=== PATIENT | female | born 1985 | race Caucasian/White ===

== ENCOUNTER 2023-03-15 19:00 | Outpatient (OUT) | payer OTHER, SELFPAY ==
[2023-03-20 11:13] LABS: Age Gdln ACOG Testing Note (.); HPV Aptima Negative (Negative); IGP, Aptima HPV, rfx 16/18,45 Note (.)
== END 2023-03-15 19:01 | disposition home or self-care (01) ==
PROVIDERS: Visit Provider Obstetrics & Gynecology
DX: Z12.4 Encounter for screening for malignant neoplasm of cervix (principal); Z11.51 Encounter for screening for human papillomavirus (HPV)
CPT/HCPCS: 87624; G0145

== ENCOUNTER 2024-04-09 18:36 | Outpatient (REF) | payer SELFPAY | END 2024-04-09 18:37 | disposition home or self-care (01) | LOC: LAB 18:36 | PROVIDERS: Visit Provider Obstetrics & Gynecology | DX: Z01.419 Encounter for gynecological examination (general) (routine) without abnormal findings (principal) | CPT/HCPCS: 87624; 88175 ==

== ENCOUNTER 2025-04-14 19:16 | Outpatient (REF) | payer BC, SELFPAY ==
--- OUTSIDE RECORDS SUMMARY | 2025-04-14 19:23 | XMS_ITS | CCD ---
Author Organization [facility] Care Team Providers Care Mortgage Processing Clerk Name Role Phone MELODIE WATERS Primary Care Unavailable GUMARO, DR MOSQUERA Admitting Unavailable GUMARO, DR MOSQUERA Attending Unavailable GUMARO, DR MOSQUERA Consulting Unavailable BHAVESH SIERRA Consulting Unavailable COLE, YAIMA HUGHES Consulting Unava dillon DE LA FUENTE, JENNIFER Nguyễn Consulting Unavailable GUMARO, DR MOSQUERA Attending Unavailable GUMARO, DR MOSQUERA Consulting Unavailable GUMARO, DR MOSQUERA Admitting Unavailable ZIEBER, DR EDDIE Mack Consulting Unavailable GUMARO, DR MOSQUERA Attending Unavailable GUMARO, DR MOSQUERA Consulting Unavailable GUMARO, DR MOSQUERA Admitting Unavailable LEANN, COLIN Attending Unavailable FRANSISCA, JOVANI APPIAH Consulting Unavailable LEANN, COLIN Admitting Unavailable MELODIE WATERS Primary Care Unavailable GUMARO, DR MOSQUERA Admitting Unavailable REQUEST, DR TUTTLE LISTED Primary Care Unavaila ble GUMARO, DR MOSQUERA Attending Unavailable GUMARO, DR MOSQUERA Admitting Unavailable GUMARO, DR MOSQUERA Attending Unavailable GUMARO, DR MOSQUERA Consulting Unavailable Melodie Waters Primary Care Physician Melodie Waters Attending Unavailable Melodie Waters Admitting Unavailable DEMETRI NAIK Attending Unavailable Melodie Waters Primary Care Unavailable Ese Acharya Jr Attending Unavailable Ese Acharya Jr Admitting Unavailable Melodie Waters DO Primary Care Provider Medications Current Medications Medication Drug Class(es) Dates Sig (Normalized) Sig (Original) acetaminophen 325 mg oral tablet (1 source) Start: 01-08-2021 Tylenol 325 mg Tab 650 mg = 2 tab(s), Oral, PRN Pain/Fever, Refills(s) 0 Start Date: 01/08/21 Status: Ordered aspirin 325 mg oral tablet (1 source) Platelet Aggregation Inhibitor, Nonsteroidal Anti-inflammatory Drug Start: 01-08-2021 aspirin 325 mg Tab 650 mg = 2 tab(s), Oral, PRN Pain/Fever, Refills(s) 0 Start Date: 01/08/21 Status: Ordered ibuprofen 200 mg oral tablet (1 source) Nonsteroidal Anti-inflammatory Drug Start: 01-08-2021 ibuprofen 200 mg Tab 400 mg = 2 tab(s), Oral, PRN Pain/Fever, Refills(s) 0 Start Date: 01/08/21 Status: Ordered losartan potassium 50 mg oral tablet (2 sources) Angiotensin 2 Receptor Tyrell Start: 03-17-2025 take 1 tablet by mouth once daily losartan (Cozaar) 50 MG tablet Take 50 mg by mouth Daily 03/17/2025 Active Multivitamins (1 source) Start: 06-02-2015 take 1 tablet by mouth once daily Multivitamins 1 tab(s), Oral, Daily, Refill(s) 0 Start Date: 06/02/15 Status: Ordered promethazine hydrochloride 25 mg oral tablet (1 source) Phenothiazine Start: 01-08-2021 take 1 tablet by mouth every eight hours as needed for nausea promethazine 25 mg Tab 25 mg = 1 tab(s), Oral, q8hr, PRN for nausea/vomiting/he adache, # 25 tab(s), Refills(s) 0, Pharmacy: [facility]/pharmacy #[id number], 168, cm, 01/08/21 16:44:00 EDT, Height/Length Dosing, 91, kg, 01/08/21 16:44:00 EDT, Weight Dosing Start Date: 01/08/21 Status: Ordered Problems Active Problems Problem Classification Problem Date Documented Date Episodic/Chronic Abdominal pain (5 sources) Pelvic and perineal pain; Translations: [PELVIC AND PERINEAL PAIN] Onset: 04-24-2022 Episodic Anxiety disorders (1 source) Mixed anxiety and depressive disorder 01-08-2021 Chronic Complications of surgical procedures or medical care (5 sources) Postprocedural hemorrhage of skin and subcutaneous tissue following other procedure; Translations: [POSTP H SKIN AND SC TISS FLW OTH PCR] Onset: 05-06-2022 Episodic Conditions associated with dizziness or vertigo (1 source) Dizziness and giddiness; Translations: [Dizziness and giddiness] Onset: 02-12-2025 Episodic Immunizations and screening for infectious disease (1 source) Encounter for screening for human papillomavirus (HPV); Translations: [ENC SCREENING HUMAN PAPILLOMAVIRUS] Onset: 03-10-2022 Episodic Inflammatory diseases of female pelvic organs (1 source) Chronic salpingitis; Translations: [CHRONIC SALPINGITIS] Onset: 05-13-2022 Chronic Menstrual disorders (1 source) Dysmenorrhea, unspecified; Translations: [DYSMENORRHEA UNSPECIFIED] Onset: 05-13-2022 Chronic Other aftercare (1 source) Encounter for change or removal of surgical wound dressing; Translations: [ENC CHG/REMOVAL SURG WOUND DRSG] Onset: 05-13-2022 Episodic Other connective tissue disease (1 source) Pain in left arm; Translations: [Pain in left arm] Onset: 02-12-2025 Episodic Other female genital disorders (1 source) Unspecified dyspareunia; Translations: [UNSPECIFIED DYSPAREUNIA] Onset: 05-13-2022 Chronic Other female genital disorders (1 source) Abnormal uterine and vaginal bleeding, unspecified; Translations: [ABNORMAL UTERINE VAGINAL BLEED UNS] Onset: 05-13-2022 Chronic Other nervous system disorders (1 source) Anesthesia of skin; Translations: [Anesthesia of skin] Onset: 02-12-2025 Episodic Other screening for suspected conditions (not mental disorders or infectious disease) (4 sources) Encounter for screening for malignant neoplasm of cervix; Translations: [ENC SCREENING MALIG NEOPLASM CERV] Onset: 03-09-2022 Episodic Screening and history of mental health and substance abuse codes (1 source) Personal history of nicotine dependence; Translations: [PERSONAL HISTORY OF NICOTINE DEPEND] Onset: 05-13-2022 Episodic Suicide and intentional self-inflicted injury (1 source) Suicidal thoughts 01-08-2021 Episodic Unclassified (1 source) CONTACT W/AND (SUSP) EXPOS COVID-19; Translations: [CONTACT W/AND (SUSP) EXPOS COVID-19] Onset: 05-06-2022 Unclassified (1 source) Acute COVID-19 Onset: 01-07-2021 01-08-2021 Past or Other Problems Problem Classification Problem Date Documented Da te Episodic/Chronic Unclassified (1 source) Onset: 08-28-2014 Resolved: 06-28-2015 08-07-2020 Comment on above: pi Results Test Name Value Interpretation Reference Range Facility B-Type Natriuretic Peptideon 02-12-2025 Natriuretic peptide B (Bld) [Mass/Vol] 10.0 pg/mL Normal 5-100 [facility] Comment on above: Result Comment: PERF ORMED BY: [place] [address] PATHOLOGIST UNLEAVENED DOUGH MIXER HOLGER COBB M.D. Performed By: #### B DISTRICT SCOUT EXECUTIVE, CK, HS TROP, CBC, PT, CMP #### [address] Complete Blood Count Auto Di ffon 02-12-2025 Basophils (Bld) [#/Vol] 0.0 10*3/uL Normal 0.0-0.2 [facility] Comment on above: Result Comment: PERF ORMED BY: [place] [address] PATHOLOGIST UNLEAVENED DOUGH MIXER HOLGER COBB M.D. Performed By: #### B DISTRICT SCOUT EXECUTIVE, CK, HS TROP, CBC, PT, CMP #### [address] Basophils/100 WBC (Bld) 0.4 % Normal . [facility] Comment on above: Performed By: #### B DISTRICT SCOUT EXECUTIVE, CK, HS TROP, CBC, PT, CMP #### [address] Eosinophils (Bld) [#/Vol] 0.4 10*3/uL Normal 0.0-0.45 [facility] Comment on above: Performed By: #### B DISTRICT SCOUT EXECUTIVE, CK, HS TROP, CBC, PT, CMP #### [place] [address] [place] Eosinophils/100 WBC (Bld) 3.0 % Normal . [facility] Comment on above: Performed By: #### B DISTRICT SCOUT EXECUTIVE, CK, HS TROP, CBC, PT, CMP #### [address] Erythrocyte distribution width (RBC) [Ratio] 12.2 % Normal 11.9-15.3 [facility] Comment on above: Performed By: #### B DISTRICT SCOUT EXECUTIVE, CK, HS TROP, CBC, PT, CMP #### [address] Hematocrit (Bld) [Volume fraction] 43.6 % Normal 34.0-46.4 [facility] Comment on above: Performed By: #### B DISTRICT SCOUT EXECUTIVE, CK, HS TROP, CBC, PT, CMP #### [address] Hemoglobin (Bld) [Mass/Vol] 14.6 g/dL Normal 11.8-15.4 [facility] Comment on above: Performed By: #### B DISTRICT SCOUT EXECUTIVE, CK, HS TROP, CBC, PT, CMP #### [address] Lymphocytes (Bld) [#/Vol] 5.0 10*3/uL High 1.00-4.8 [facility] Comment on above: Performed By: #### B DISTRICT SCOUT EXECUTIVE, CK, HS TROP, CBC, PT, CMP #### [address] Lymphocytes/100 WBC (Bld) 41.8 % Normal . [facility] Comment on above: Performed By: #### B DISTRICT SCOUT EXECUTIVE, CK, HS TROP, CBC, PT, CMP #### [address] MCH (RBC) [Entitic mass] 30.3 pg Normal 24.7-34.3 [facility] Comment on above: Performed By: #### B DISTRICT SCOUT EXECUTIVE, CK, HS TROP, CBC, PT, CMP #### [address] MCV (RBC) [Entitic vol] 90.8 fL Normal 80-100 [facility] Comment on above: Performed By: #### B DISTRICT SCOUT EXECUTIVE, CK, HS TROP, CBC, PT, CMP #### [address] Mean Corpuscular HGB Conc 33.4 g/dL Normal 32.0-35.0 [facility] Comment on above: Performed By: #### B DISTRICT SCOUT EXECUTIVE, CK, HS TROP, CBC, PT, CMP #### [address] Monocytes (Bld) [#/Vol] 0.8 10*3/uL Normal 0.0-0.8 [facility] Comment on above: Performed By: #### B DISTRICT SCOUT EXECUTIVE, CK, HS TROP, CBC, PT, CMP #### [place] [address] [place] Monocytes/100 WBC (Bld) 18.53 % Normal 0.00-20.00 [facility] Comment on above: Performed By: #### B DISTRICT SCOUT EXECUTIVE, CK, HS TROP, CBC, PT, CMP #### [address] Monocytes/100 WBC (Bld) 6.4 % Normal . [facility] Comment on above: Performed By: #### B DISTRICT SCOUT EXECUTIVE, CK, HS TROP, CBC, PT, CMP #### [address] Neutrophils (Bld) [#/Vol] 5.8 10*3/uL Normal 1.8-7.7 [facility] Comment on above: Performed By: #### B DISTRICT SCOUT EXECUTIVE, CK, HS TROP, CBC, PT, CMP #### [address] Neutrophils/100 WBC (Bld) 48.4 % Normal . [facility] Comment on above: Performed By: #### B DISTRICT SCOUT EXECUTIVE, CK, HS TROP, CBC, PT, CMP #### [place] [address] [place] NRBC% 0.1 /100{WBC} Normal 0-0.5 The [facility] Comment on above: Performed By: #### B DISTRICT SCOUT EXECUTIVE, CK, HS TROP, CBC, PT, CMP #### [address] Platelet mean volume (Bld) [Entitic vol] 9.8 fL Normal 6.3-10.7 [facility] Comment on above: Performed By: #### B DISTRICT SCOUT EXECUTIVE, CK, HS TROP, CBC, PT, CMP #### [address] Platelets (Bld) [#/Vol] 313 10*3/uL Normal 150-450 [facility] Comment on above: Performed By: #### B DISTRICT SCOUT EXECUTIVE, CK, HS TROP, CBC, PT, CMP #### [address] RBC (Bld) [#/Vol] 4.81 10*6/uL Normal 3.60-5.00 The [facility] Comment on above: Performed By: #### B DISTRICT SCOUT EXECUTIVE, CK, HS TROP, CBC, PT, CMP #### [address] WBC (Bld) [#/Vol] 11.9 10*3/uL High 3.8-11.6 [facility] Comment on above: Performed By: #### B DISTRICT SCOUT EXECUTIVE, CK, HS TROP, CBC, PT, CMP #### [address] White Blood Count 11.9 [CFU]/mL High 3.8-11.6 [facility] Comment on above: Performed By: #### B DISTRICT SCOUT EXECUTIVE, CK, HS TROP, CBC, PT, CMP #### [address] Comprehensive Metabolic Pane amber 02-12-2025 Albumin [Mass/Vol] 4.8 g/dL Normal 3.5-5.7 The [facility] Comment on above: Performed By: #### B DISTRICT SCOUT EXECUTIVE, CK, HS TROP, CBC, PT, CMP #### [address] Albumin/Globulin [Mass ratio] 1.4 {ratio} Normal [facility] Comment on above: Performed By: #### B DISTRICT SCOUT EXECUTIVE, CK, HS TROP, CBC, PT, CMP #### [address] ALP [Catalytic activity/Vol] 52 U/L Normal 34-104 [facility] Comment on above: Performed By: #### B DISTRICT SCOUT EXECUTIVE, CK, HS TROP, CBC, PT, CMP #### [address] ALT [Catalytic activity/Vol] 11 U/L Normal 7-52 [facility] Comment on above: Performed By: #### B DISTRICT SCOUT EXECUTIVE, CK, HS TROP, CBC, PT, CMP #### [address] Anion gap [Moles/Vol] 10.4 mmol/L Normal 6.0-15.0 [facility] Comment on above: Performed By: #### B DISTRICT SCOUT EXECUTIVE, CK, HS TROP, CBC, PT, CMP #### [address] AST [Catalytic activity/Vol] 17 U/L Normal 13-39 [facility] Comment on above: Performed By: #### B DISTRICT SCOUT EXECUTIVE, CK, HS TROP, CBC, PT, CMP #### [address] Bilirubin [Mass/Vol] 0.4 mg/dL Normal 0.3-1.0 [facility] Comment on above: Performed By: #### B DISTRICT SCOUT EXECUTIVE, CK, HS TROP, CBC, PT, CMP #### [address] Calcium [Mass/Vol] 9.3 mg/dL Normal 8.6-10.3 The [facility] Comment on above: Performed By: #### B DISTRICT SCOUT EXECUTIVE, CK, HS TROP, CBC, PT, CMP #### [address] Chloride [Moles/Vol] 104 mmol/L Normal 98-107 [facility] Comment on above: Performed By: #### B DISTRICT SCOUT EXECUTIVE, CK, HS TROP, CBC, PT, CMP #### [address] CO2 [Moles/Vol] 25.2 mmol/L Normal 21.0-31.0 The [facility] Comment on above: Performed By: #### B DISTRICT SCOUT EXECUTIVE, CK, HS TROP, CBC, PT, CMP #### [facility] [address] Creatinine [Mass/Vol] 0.76 mg/dL Normal 0.60-1.20 [facility] Comment on above: Performed By: #### B DISTRICT SCOUT EXECUTIVE, CK, HS TROP, CBC, PT, CMP #### [address] Creatinine Clr Calc Pharmacy 121.94 Normal [facility] Comment on above: Result Comment: PERF ORMED BY: [place] [address] PATHOLOGIST UNLEAVENED DOUGH MIXER HOLGER OCBB M.D. Performed By: #### B DISTRICT SCOUT EXECUTIVE, CK, HS TROP, CBC, PT, CMP #### [address] GFR/1.73 sq M.predicted MDRD (S/P/Bld) [Vol rate/Area] mL/min/{1.73_m2} Normal [facility] Comment on above: Performed By: #### B DISTRICT SCOUT EXECUTIVE, CK, HS TROP, CBC, PT, CMP #### [place] [address] [place] Globulin (S) [Mass/Vol] 3.4 g/dL Normal [facility] Comment on above: Performed By: #### B DISTRICT SCOUT EXECUTIVE, CK, HS TROP, CBC, PT, CMP #### [address] Glucose [Mass/Vol] 90 mg/dL Normal 70-100 The [facility] Comment on above: Result Comment: [facility] Glucose Reference Range is dependent on time and content of last meal. Glucose of more than 200 mg/dL in a nonstressed, ambulatory subject supports the diagnosis of Diabetes Mellitus. ADA recommended reference range Performed By: #### B DISTRICT SCOUT EXECUTIVE, CK, HS TROP, CBC, PT, CMP #### [address] Potassium [Moles/Vol] 3.6 mmol/L Normal 3.5-5.1 [facility] Comment on above: Result Comment: Hemo lysis is present at a level that could interfere with the result. Contact lab if redraw is required Performed By: #### B DISTRICT SCOUT EXECUTIVE, CK, HS TROP, CBC, PT, CMP #### [address] Protein [Mass/Vol] 8.2 g/dL Normal 6.4-8.9 The [facility] Comment on above: Performed By: #### B DISTRICT SCOUT EXECUTIVE, CK, HS TROP, CBC, PT, CMP #### [address] Sodium [Moles/Vol] 136 mmol/L Normal 136-145 The [facility] Comment on above: Performed By: #### B DISTRICT SCOUT EXECUTIVE, CK, HS TROP, CBC, PT, CMP #### [address] Urea nitrogen [Mass/Vol] 15 mg/dL Normal 7-25 [facility] Comment on above: Performed By: #### B DISTRICT SCOUT EXECUTIVE, CK, HS TROP, CBC, PT, CMP #### [address] Creatine Kinaseon 02-12-2025 CK [Catalytic activity/Vol] 123 U/L Normal 30-223 [facility] Comment on above: Performed By: #### B DISTRICT SCOUT EXECUTIVE, CK, HS TROP, CBC, PT, CMP #### [address] ECG 12 lead ECGon 02-12-2025 ECG 12 lead ECG [facility] [place] [address] Electrocardiograph Report Signed Patient: Dedra Hamilton MR#: [id number] 82 : 1985 Acct:[id number] Age/Sex: 39 / F ADM Date: 02/12/25 Loc: ER Room: Type: [facility] ER Attending Dr: Ordering Provider: Ese Acharya Jr, MD Date of Service: 02/12/25 ECG/ECG 12 lead ECG: CHEST PAIN Copies to: Test Reason : Blood Pressure : */* mmHG Vent. Rate : 84 BPM Atrial Rate : 84 BPM P-R Int : 156 ms QRS Dur : 84 ms QT Int : 396 ms P-R-T Axes : 52 39 51 degrees QTcB Int : 467 ms Normal sinus rhythm with sinus arrhythmia Normal ECG No previous ECGs available Confirmed by ESE ACHARYA MD ([id number]) on 02/12/2025 5:15:30 AM Referred By: Electronically Signed By: ESE ACHARYA MD Transcribed By: MUS Signed By Ese Acharya Jr, MD 0515 Normal [facility] Prothrombin Time INRon 02-12 INR Coag (PPP) [Relative time] 1.0 {INR} Normal [facility] Comment on above: Result Comment: INR Therapeutic Range A) Pre- and Peroperative OAT started two weeks before surgery. NOT HIP SURGERY: 1.5 - 2.5 HIP SURGERY: 2 - 3 B) Primary and secondary prevention of venous THROMBOSIS: 2 - 3 C) Active venous thrombosis, pulmonary embolism and prevention of recurrent venous thrombosis: 2 - 3 D) Prevention of arterial thromboembolism including patients with mechanical heart valves: 3 - 4.5 PERFORMED BY: [place] [address] PATHOLOGIST UNLEAVENED DOUGH MIXER HOLGER COBB M.D. Performed By: #### B DISTRICT SCOUT EXECUTIVE, CK, HS TROP, CBC, PT, CMP #### [place] [id number] [facility] PT Coag (PPP) [Time] 11.6 s Normal 9.0-12.9 The [facility] Comment on above: Result Comment: A he matocrit value greater than 55% may lead to inaccurate results in coagulation testing. Patients having hematocrit values >55% require a special collection tube for coagulation studies. Please contact the laboratory at [phone] for redraw instructions. Performed By: #### B DISTRICT SCOUT EXECUTIVE, CK, HS TROP, CBC, PT, CMP #### [facility] [address] [place] [id number] [facility] Troponin I High Sensitivityo n 02-12-2025 Troponin I High Sensitivity 3 Normal 0-15 [facility] Comment on above: Result Comment: The Troponin units of report have been changed to meet the Chest Pain Accreditation requirement, element EC5.M1l2. Troponin units are changed from pg/ml to ng/L. Also, the decimal is removed and results are in whole numbers. PERFORMED BY: [place] [address] PATHOLOGIST UNLEAVENED DOUGH MIXER HOGLER COBB M.D. Performed By: #### H S TROP #### [address] Troponin I High Sensitivity 3 Normal 0-15 [facility] Comment on above: Result Comment: The Troponin units of report have been changed to meet the Chest Pain Accreditation requirement, element EC5.M1l2. Troponin units are changed from pg/ml to ng/L. Also, the decimal is removed and results are in whole numbers. PERFORMED BY: [place] [address] PATHOLOGIST UNLEAVENED DOUGH MIXER HOLGER COBB M.D. Performed By: #### B DISTRICT SCOUT EXECUTIVE, CK, HS TROP, CBC, PT, CMP #### [address] XR chest 1V portableon 02-12 XR chest 1V portable [facility] Main [place] [address] [place] [address] XRay Report Signed Patient: Dedra Hamilton MR#: [id number] 82 : 1985 Acct:[id number] Age/Sex: 39 / F ADM Date: 02/12/25 Loc: ER Room: Type: [facility] Attending Dr: Copies to: Ese Acharya Jr, MD Ordering Provider: Ese Acharya Jr, MD Date of Service: 02/12/25 XR/XR chest 1V portable: CHEST PAIN SINGLE VIEW CHEST CLINICAL HISTORY: Numbness pain left jaw. COMPARISON: None FINDINGS: Heart normal in size. Lungs are clear. No free air. XR/XR chest 1V portable IMPRESSION: NO ACUTE FINDINGS Impression dictated by: Dylan Salazar Jr., D.OJoon 02/12/2025 8:52 AM Dictation Location: [place] [address] Transcribed By: [facility] 02/12/25 0852 Dictated By: Dylan Salazar Jr, DO 02/12/25 0851 Signed By: 02/12/25 0852 Normal [facility] Consent for Treatmenton Consent for Treatment [id number] 0CD:127 Normal [facility] Physician Orderon 12-30-2022 Physician Order [id number] 0CD:127 Normal [facility] XR Ankle 3+ Views Lefton XR Ankle 3+ Views Left Exam Date/Time: 12/30/2022 11:35 EDT Reason for Exam: [id number] Report IMPRESSION: Soft tissue edema without acute osseous finding. EXAMINATION/TECHNIQUE: XR Ankle 3+ Views Left HISTORY: Lateral ankle pain. Recent fall. COMPARISON: None RESULT: Soft tissue edema about the ankle, especially laterally. No evidence for acute fracture. No dislocation. Ankle mortise intact. Moderate plantar and small posterior calcaneal enthesophytes. Joint spaces appear maintained. No other significant abnormality. Ordering Provider: Melodie Waters FINAL REPORT Dictated: 12/30/2022 11:50 am Raul Burris MD Signed (Electronic Signature): 12/30/2022 11:50 am Signed by: Raul Burris MD Transcribed by: DEVYN Technologist: EDIL Technical Comments Radiation Dose: Ka,r in mGy = na DAP = na Normal [facility] CBC AUTO DIFFon 05-06-2022 BASO # 0.0 103/ul Normal 0.0-0.1 [facility] Comment on above: Performed By: #### C BC #### [facility] [address] [place] [address] Dr. Harlan Guzmán Basophils/100 WBC (Bld) 0.4 % Normal 0.2-2.0 [facility] Comment on above: Performed By: #### C BC #### [facility] [address] [place] [address] Dr. Harlan Guzmán EO # 0.2 103/ul Normal 0.0-0.7 [facility] Comment on above: Performed By: #### C BC #### [facility] [address] [place] [address] Dr. Harlan Guzmán Eosinophils/100 WBC (Bld) 2.2 % Normal 0.9-7.0 [facility] Comment on above: Performed By: #### C BC #### [facility] [address] [place] [address] Dr. Harlan Guzmán Erythrocyte distribution width (RBC) [Ratio] 12.1 % Normal 11.0-15.0 [facility] Comment on above: Performed By: #### C BC #### [facility] [address] [place] [address] Dr. Harlan Guzmán Hematocrit (Bld) [Volume fraction] 42.3 % Normal 36.0-48.0 [facility] Comment on above: Performed By: #### C BC #### [facility] [address] [place] [address] Dr. Harlan Guzmán Hemoglobin (Bld) [Mass/Vol] 13.9 g/dL Normal 12.0-16.0 [facility] Comment on above: Performed By: #### C BC #### [facility] [address] [place] [address] Dr. Harlan Guzmán IG # 0.03 10e3/ul Normal 0.00-0.03 [facility] Comment on above: Performed By: #### C BC #### [facility] [address] [place] [address] Dr. Harlan Guzmán IG % 0.3 % Normal 0.0-0.5 [facility] Comment on above: Performed By: #### C BC #### [facility] [address] [place] [address] Dr. Harlan Guzmán LYMPH # 2.0 103/ul Normal 1.2-3.8 [facility] Comment on above: Performed By: #### C BC #### [facility] [address] [place] [address] Dr. Harlan Guzmán Lymphocytes/100 WBC (Bld) 20.7 % Normal 20.5-60.0 [facility] Comment on above: Performed By: #### C BC #### [facility] [address] [place] [address] Dr. Harlan Guzmán MANUAL DIFF REQ NO Normal [facility] Comment on above: Performed By: #### C BC #### [facility] [address] [place] [address] Dr. Harlan Guzmán MCH (RBC) [Entitic mass] 30.3 pg Normal 26.7-34.0 [facility] Comment on above: Performed By: #### C BC #### [facility] [address] [place] [address] Dr. Harlan Guzmán MCHC (RBC) [Mass/Vol] 32.9 g/dL Normal 29.9-35.2 [facility] Comment on above: Performed By: #### C BC #### [facility] [address] [place] [address] Dr. Harlan Guzmán MCV (RBC) [Entitic vol] 92.4 fL Normal 81.0-99.0 [facility] Comment on above: Performed By: #### C BC #### [facility] [address] [place] [address] Dr. Harlan Guzmán MONO # 0.7 103/ul Normal 0.3-0.8 [facility] Comment on above: Performed By: #### C BC #### [facility] [address] [place] [address] Dr. Harlan Guzmán Monocytes/100 WBC (Bld) 6.9 % Normal 1.7-12.0 [facility] Comment on above: Performed By: #### C BC #### [facility] [address] [place] [address] Dr. Harlan Guzmán NEUT # 6.6 103/ul Critically high 1.4-6.5 [facility] Comment on above: Performed By: #### C BC #### [facility] [address] [place] [address] Dr. Harlan Guzmán Neutrophils/100 WBC (Bld) 69.5 % Normal 43.0-75.0 [facility] Comment on above: Performed By: #### C BC #### [facility] [address] [place] [address] Dr. Harlan Guzmán Platelet mean volume (Bld) [Entitic vol] 10.5 fL Normal 9.5-13.5 [facility] Comment on above: Performed By: #### C BC #### [facility] [address] [address] [address] Harlan Guzmán PLT 253 103/ul Normal 150-450 [facility] Comment on above: Performed By: #### C BC #### [facility] [address] [address] [address] Harlan Guzmán RBC 4.58 106/ul Normal 4.20-5.40 [facility] Comment on above: Performed By: #### C BC #### [facility] [address] [address] [address] Harlan Guzmán WBC 9.6 103/ul Normal 4.0-11.0 [facility] Comment on above: Performed By: #### C BC #### [facility] [address] [address] [address] Harlan Guzmán PREG HCG QUALon 05-06-2022 , QUAL Negative Normal NEGATIVE [facility] Comment on above: Performed By: #### P REG #### [facility] [address] [place] [address] Dr. Harlan Guzmán Covid-19 PCR (CVDTB)on SARS-CoV-2 (COVID-19) RNA DEX+probe Ql (Unsp spec) Not detected Normal NOT DETECTED [facility] Comment on above: Result Comment: This test is not yet approved or cleared by the [place] FDA. When there are no FDA-approved or cleared tests available, and other criteria are met, FDA can make tests available under an emergency access mechanism called an Emergency Use Authorization (EUA). The EUA for this test is supported by the [place] of Health and Human Service's (HHS's) declaration that circumstances exist to justify the emergency use of in vitro diagnostics for the detection and/or diagnosis of the virus that causes COVID-19. This EUA will remain in effect (meaning this test can be used) for the duration of the COVID-19 declaration justifying emergency of IVDs, unless it is terminated or revoked by FDA (after which the test may no longer be used). When diagnostic testing is negative, the possibility of a false negative should be considered in the context of a patient's recent exposures and the presence of clinical signs and symptoms consistent with SARS-CoV-2. Performed By: #### C VDTB #### [facility] [address], [place] [address] Dr. Harlan Guzmán US PELVIS AND TRANSVAGon US PELVIS AND TRANSVAG EXAMINATION: US PELVIS AND TRANSVAG HISTORY: Pelvic and perineal pain , chronic COMPARISON: Ultrasound pelvis 11/10/2020 TECHNIQUE: Transabdominal and transvaginal sonographic examination. FINDINGS: UTERUS: Normal size and appearance. Uterus size: 7.2 x 3.2 x 4.6 cm ENDOMETRIUM: Normal homogeneous appearance. Endometrial thickness: 3 mm RIGHT OVARY: Contains a 1.6 cm benign-appearing cyst. Duplex Doppler demonstrates normal waveform and flow; resistive index 0.46. Ovary size: 3.1 x 2.0 x 2.9 cm LEFT OVARY: Normal size and appearance and contain several small follicles. Duplex Doppler demonstrates normal waveform and flow; resistive index 0.3. Ovary size: 2.6 x 2.3 x 2.5 cm CUL-DE-SAC: Unremarkable. No significant free fluid. BLADDER: Unremarkable. OTHER: None. IMPRESSION: 1. Right ovary contains a 1.6 cm benign-appearing cyst of doubtful clinical significance. 2. No specific findings to account for patient's symptoms. Electronically authenticated by: EDDIE GUDINO Date: 2022-03-18 16:09 Normal [facility] PAP ACOG PANEL 2: 30 to 65on 03-15-2022 . . Normal [facility] Comment on above: Result Comment: Perf ormed at: WB Performed By: #### [id number] #### [facility] [address] [address] [address] Harlan Guzmán Age Gdln ACOG Testing 30-65 Normal [facility] Comment on above: Performed By: #### [id number] #### [facility] [address] [place], [place] [address] Dr. Harlan Guzmán DIAGNOSIS: Comment Normal [facility] Comment on above: Result Comment: NEGA TIVE FOR INTRAEPITHELIAL LESION OR MALIGNANCY. CELLULAR CHANGES ASSOCIATED WITH INFLAMMATION ARE PRESENT. Performed at: WB Performed By: #### [id number] #### [facility] [address] [place] [address] Dr. Harlan Guzmán HPV Aptima Negative Normal Negative [facility] Comment on above: Result Comment: This nucleic acid amplification test detects fourteen high-risk HPV types (16,18,31,33,35,39,45,51,52,56,58,59,66,68) without differentiation. Performed at: =G Performed By: #### [id number] #### [facility] [address] [place] [address] Dr. Harlan Guzmán Methodology: Comment Normal [facility] Comment on above: Result Comment: This liquid based ThinPrep(R) pap test was screened with the use of an image guided system. Performed at: WB Performed By: #### [id number] #### [facility] [address] [place] [address] Dr. Harlan Guzmán Note: Comment Normal [facility] Comment on above: Result Comment: The Pap smear is a screening test designed to aid in the detection of premalignant and malignant conditions of the uterine cervix. It is not a diagnostic procedure and should not be used as the sole means of detecting cervical cancer. Both false-positive and false-negative reports do occur. . Performed at: WB Performed By: #### [id number] #### [facility] [address] [place] [address] Dr. Harlan Guzmán Performed by: Comment Normal [facility] Comment on above: Result Comment: Clarisa Payne, Inbound Call Center Representative (ASCP) Performed at: WB Performed By: #### [id number] #### [facility] [address] [place] [address] Dr. Harlan Guzmán Specimen adequacy: Comment Normal [facility] Comment on above: Result Comment: Sati sfactory for evaluation. Endocervical and/or squamous metaplastic cells (endocervical component) are present. Performed at: WB Performed By: #### [id number] #### [facility] [address] [place] [address] Dr. Harlan Guzmán Vital Signs Date Time Vital Sign Value Performing Clinician Gretchen wagner 04-14-2025 13:53-0400 Body mass index (BMI) [Ratio] 29.88 kg/m2 Demetri Gumaro DO Work Phone: [facility] 04-14-2025 13:53-0400 Body weight 86.55 kg Demetri Gumaro DO Work Phone: [facility] 04-14-2025 13:53-0400 Diastolic blood pressure 84 mm[Hg] Demetri Gumaro DO Work Phone: [facility] 04-14-2025 13:53-0400 Systolic blood pressure 130 mm[Hg] Demetri Gumaro DO Work Phone: [facility] Encounters Encounter Date Encounter Type Care Provider Facility Start: 04-14-2025 End: 04-14-2025 Bamboo flowsheet Demetri Gumaro DO Work Phone: [facility] Start: 04-14-2025 End: 04-14-2025 Bamboo flowsheet Demetri Gumaro DO Work Phone: [facility] Start: 04-14-2025 End: 04-14-2025 Patient encounter procedure Demetri Gumaro DO Work Phone: [facility] Work Phone: Start: 04-14-2025 End: 04-14-2025 Periodic preventive med est patient 18-39 yrs Demetri Gumaro DO Work Phone: [facility] Comment on above: Well woman exam with routine gynecological exam Start: 02-12-2025 End: 02-12-2025 Emergency department patient visit Melodie Waters Facility:[facility] Start: 04-09-2024 End: 04-09-2024 ambulatory DEMETRI GUMARO Not Available Start: 12-30-2022 End: 12-31-2022 ambulatory Meldoie Waters Facility:[facility] Start: 12-30-2022 End: 12-30-2022 Patient encounter procedure Melodie Waters [facility] Start: 05-06-2022 End: 05-06-2022 ambulatory COLIN NORIEGA Facility:[facility] Start: 05-06-2022 Encounter for preprocedural laboratory examination DR DEMETRI NAIK [facility] Start: 05-06-2022 End: 05-06-2022 ambulatory MELODIE WATERS Facility:[facility] Start: 05-03-2022 End: 05-04-[address] DEMETRI NAIK Facility:[facility] Start: 05-03-2022 End: 05-04-2022 Encounter for preprocedural laboratory examination DR DEMETRI NAIK Facility:[facility] Start: 04-24-2022 Encounter for other preprocedural examination DR DEMETRI NAIK [facility] Start: 04-22-2022 End: 04-23-[address] DEMETRI NAIK Facility:[facility] Start: 04-22-2022 End: 04-23-2022 Encounter for other preprocedural examination DR DEMETRI NAIK Facility:[facility] Start: 03-17-2022 End: 03-18-[address] DEMETRI NAIK Facility:[facility] Start: 03-09-2022 End: 03-09-[address] DEMETRI NAIK Facility:[facility] Procedures Date Procedure Procedure Detail Performing Clinician Start: 08-28-1988 Hernia repair Melodie melton Plan of Treatment Date Care Activity Detail Author Start: 04-15-2026 End: 04-15-2026 Patient encounter procedure 04/15/2026 3:00 PM EDT Procedure Visit SANTANA MURRAY [address] [place] [address] Demetir Naik DO [address] [place] [address] [facility] MURRAY Start: 04-14-2025 End: 04-14-2025 Patient encounter procedure 04/14/2025 2:00 PM EDT Office Visit SANT[facility] MURRAY [address] [place] [id number] Demetri Naik, [address] [place] [address] Arrived SANTANA MURRAY Comment on above: Arrived Cytology Cervical or vaginal smear or scraping study Pap Smear Pathology and Cytology Routine Well woman exam with routine gynecological exam Ordered: 04/14/2025 [facility] Work Phone: Comment on above: Ordered: 04/14/2025 Human papilloma viru s DNA [Presence] in Unspecified specimen by Probe with amplification HPV DNA probe, amplified Microbiology Routine Well woman exam with routine gynecological exam Ordered: 04/14/2025 [facility] Comment on above: Ordered: 04/14/2025 Immunizations Immunization Date Immunization Notes Care Provider Elsa law 07-09-2015 measles, mumps and rubella virus vaccine Melodie Waters [facility] 07-09-2015 tetanus toxoid, redu ginette diphtheria toxoid, and acellular pertussis vaccine, adsorbed Melodie Waters [facility] Payers Date Payer Category Payer Self-pay 2025 Unknown [id number] 2024 [facility] er [id number] 2023 Unknown [id number] 2022 Private Health Insurance [id number] 1986 Unknown [id number] 1986 Unknown [id number] 1986 Unknown [id number] 1986 Unknown [id number] 1986 Unknown [id number] [id number] 1986 Unknown [id number] [id number] 1986 Unknown [id number] [id number] 1986 Unknown [id number] [id number] 1959 Unknown [id number] Unknown [id number] [id number] Social History Date Type Detail Facility Tobacco smoking status [facility] Start: 04-09-2024 End: 04-14-2025 Sex Assigned At Female [facility] Start: 03-14-2023 Tobacco smoking stat [facility] Never smoked tobacco [facility] Start: 03-14-2023 Tobacco use and exposure Smokeless tobacco non-user [facility] Start: 04-09-2024 End: 04-14-2025 Alcoholic beverage intake Lifetime non-drinker (finding) [facility] Start: 04-09-2024 End: 04-14-2025 History of Social function [facility] Start: 1985 Sex assigned at Not on file [facility] History of Present illness Narrative 04-14-2025 Maris Quiroz LPN - 04/14/2025 2:00 PM EDT Note Date & Type Note Facility 04-14-2025 History of Presen t illness Narrative Reason for Appointment: Patient ID: Dedra Hamilton is a 39 y.o. female who presents for [facility] Visit Patient presents today for Annual Exam. MEDICATIONS Current Outpatient Medications Medication Instructions losartan (COZAAR) 50 mg, Daily ALLERGIES No Known Allergies PROBLEMS Active Ambulatory Problems Diagnosis Date Noted No Active Ambulatory Problems Resolved Ambulatory Problems Diagnosis Date Noted No Resolved Ambulatory Problems Past Medical History: Diagnosis Date Dyspareunia, female History of endometrial ablation History of tubal ligation Hypertension Menorrhagia Obesity (BMI 30-39.9) Pelvic pain Postop check Well woman exam HISTORY PAST MEDICAL HISTORY SOCIAL HISTORY Past Medical History: Diagnosis Date Dyspareunia, female History of endometrial ablation History of tubal ligation Hypertension Menorrhagia Obesity (BMI 30-39.9) Pelvic pain Postop check Well woman exam Social History Tobacco Use Smoking status: Never Smokeless tobacco: Never Substance Use Topics Alcohol use: Never Drug use: Never FAMILY HISTORY No family history on file. SURGICAL HISTORY Past Surgical History: Procedure Laterality Date CERVICAL BIOPSY W/ LOOP ELECTRODE EXCISION LEEP ENDOMETRIAL ABLATION HERNIA REPAIR LAPAROSCOPY DIAGNOSTIC / BIOPSY / ASPIRATION / LYSIS diagnostic laparoscopy OR LASER SURGERY OF CERVIX SALPINGECTOMY Bilateral REVIEW OF SYSTEMS Review of Systems: Review of Systems Constitutional: Negative. HENT: Negative. Eyes: Negative. Respiratory: Negative. Cardiovascular: Negative. Gastrointestinal: Negative. Genitourinary: Negative. Musculoskeletal: Negative. Skin: Negative. Neurological: Negative. All other systems reviewed and are negative. Hematological: Negative. Endocrine: Negative. Allergic/Immunologic: Negative. OBJECTIVE Objective: Physical Exam Constitutional: Appearance: Normal appearance. She is well-developed. Genitourinary: Vulva normal. Cardiovascular: Rate and Rhythm: Normal rate and regular rhythm. Pulmonary: Effort: Pulmonary effort is normal. Breath sounds: Normal breath sounds. Abdominal: General: Bowel sounds are normal. There is no distension. Palpations: Abdomen is soft. Tenderness: There is no abdominal tenderness. There is no guarding or rebound. Musculoskeletal: General: No swelling. Normal range of motion. Right lower leg: No edema. Left lower leg: No edema. Neurological: Mental Status: She is alert and oriented to person, place, and time. Skin: General: Skin is warm and dry. Psychiatric: Mood and Affect: Mood normal. Behavior: Behavior normal. Vitals and nursing note reviewed. Exam conducted with a seed potato arranger present. Vitals: Estimated body mass index is 29.88 kg/m as calculated from the following: Height as of 03/15/23: 5' 7 . Weight as of this encounter: 190 lb 12.8 oz. BP: 130/84 No LMP recorded. Patient has had an ablation. ASSESSMENT & PLAN ICD-10-CM 1. Well woman exam with routine gynecological exam Z01.419 Pap Smear HPV DNA probe, amplified Annual Exam: Patient presents today for an annual exam. Patient states she is doing well and has no complaints. Pap was obtained without difficulty. Orders Placed This Encounter Procedures HPV DNA probe, amplified Follow Up: Patient is to return in one year for annual unless needed otherwise. Documented by Maris Quiroz LPN on behalf of: Demetri Naik DO documented in this encounter [facility] Clinical Note 05-06-2022 Note Date & Type Note Facility 05-06-2022 Note OPERATIVE NOTE OPERATION DATE: 05/06/2022 ANESTHETIC: General PREOPERATIVE DIAGNOSIS: Pelvic pain, abnormal uterine bleeding, dysmenorrheal, dyspareunia. POSTOPERATIVE DIAGNOSIS: Pelvic pain, abnormal uterine bleeding, dysmenorrheal, dyspareunia including Filshie clips that were attached to the bladder as well as bilateral hydrosalpinx. PROCEDURE NAME: Karena endometrial ablation with hysteroscopy with diagnostic laparoscopy with bilateral salpingectomy. PROCEDURE: The patient was taken back to the OR where she was prepped and draped in the normal sterile fashion after being placed in the dorsal lithotomy position, after being placed under general anesthesia without difficulty. a weighted speculum was then placed into the vagina. The anterior lip was grasped with a single tooth tenaculum. The patient was then sounded to approximatley 9cm. The patient was gently sounded using Hegar dilators and the hysteroscope was passed through the cervix into the uterus where both ostia were seen. No gross evidence of polyps, fibroids or malignancy. The cervical length was noted to be 4cm. The Karena ablation apparatus was set to approximately 5cm in length. This was placed in through the cervix and into the uterus. After the seal was tested, at that time the total ablation of 120 seconds was performed with the Karena without difficulty. All instruments were removed from the vagina. A wet sponge stick was placed into the patient's vagina. Attention was then turned to the patient's abdomen, where a scalpel was used to make a small infraumbilical incision. The S retractors were then used to dissect the underlying layers until the fascia could be seen. The fascia was then grasped with Nicole clamps and tented up. A knife was then used to make a small incision to the fascia. The muscle was identified, at that time two sutures of #0 Vicryl on a GI needle was then used and placed through the fascia. The peritoneum was then identified and entered bluntly. The 10-4 Raimundo was then placed into the patient's abdomen. This was confirmed with direct visualization of the bowel, using the laparoscope. The patient's abdomen was then insufflated using approximately 4 liters of CO2 gas. Survey of the patient's abdomen demonstrated normal appearing ovaries, uterus and tubes. A second and third lateral ports, which was 7-8 in size and 5mm in size, was then placed laterally after incision was made in the skin under direct visualization. The patient's tube on the patient's right side was identified. The tube was then tented up using a grasper. The ligasure was used to transect and coagulate the mesosalpingx from the fibriated end to the insertion at the uterus, the tube was amputated and removed in its entirety. Excellent hemostasis was noted. This was performed on the contralateral side as well. The lateral ports were then moved under direct visualization with excellent hemostasis. The abdomen was deinsufflated. All instruments were removed from the patient's abdomen. The fascia was closed using the #0 Vicryl on GI needle. The skin was closed using 4- 0 Vicryl subcuticularly. All instruments were removed from the patient's vagina as well. The patient was taken out of the dorsal lithotomy position and placed in the supine position and taken to recovery in stable condition. Sponge, lap and needle counts were correct x2. Omental adhesions were removed from the anterior abdominal wall using the ligasure.? [facility] Clinical Note 05-06-2022 Note Date & Type Note Facility 05-06-2022 Note OPERATIVE NOTE OPERATION DATE: 05/06/2022 PROCEDURE: Karena endometrial ablation with hysteroscopy with diagnostic laparoscopy with bilateral salpingectomy. PREOPERATIVE DIAGNOSIS: Pelvic pain, abnormal uterine bleeding, dysmenorrhea, dyspareunia. POSTOPERATIVE DIAGNOSIS: Pelvic pain, abnormal uterine bleeding, dysmenorrhea, dyspareunia including Filshie clips that were attached to the bladder as well as bilateral hydrosalpinx. ANESTHESIA: General. SURGEON: Demetri Naik D.O. EMBOSSER APPRENTICE: SANTIAGO Caballero URINE OUTPUT: Yellow and clear. BLOOD LOSS: 5 mL. FINDINGS: Bilateral hydrosalpinx, Filshie clips attached to the bladder, slightly adhered. No gross evidence of endometriosis. Normal appearing ovaries and uterus. PROCEDURE: The patient was taken back to the OR where she was prepped and draped in the normal sterile fashion after being placed in the dorsal lithotomy position, after being placed under general anesthesia without difficulty. A weighted speculum was placed into the vagina. The anterior lip was grasped with a single tooth tenaculum. The patient was then sounded to approximated 8 cm. The patient's cervix was gently dilated using Hegar dilators. The hysteroscope was passed through the cervix into the uterus where both ostia were seen. No gross evidence of polyps, fibroids or malignancy. The cervical length was noted to be 4 cm. The total cavity length is 4 cm. The Karena ablation apparatus was set to approximately 4 cm in length. This was placed through the cervix and into the uterus. After the seal was tested, at that time the total ablation of 120 seconds was performed with the Karena without difficulty. All instruments were removed from the vagina. Excellent hemostasis noted. Sponge and lap count correct times 2. Patient taken to recovery in stable condition. The patient was taken back to the Operating Room where she was given general anesthesia without difficulty. She was then prepped and draped in the normal sterile fashion after being placed in a dorsal lithotomy position. A wet sponge stick was placed into the patient's vagina. Attention was then turned to the patient's abdomen, where a scalpel was used to make a small infraumbilical incision. The S retractors were then used to dissect the underlying layers until the fascia could be seen. The fascia was then grasped with Nicole clamps and tented up. A knife was then used to make a small incision to the fascia. The muscle was identified, at that time two sutures of #0 Vicryl on a GI needle was then used and placed through the fascia. The peritoneum was then identified and entered bluntly. The 10-4 Raimundo was then placed into the patient's abdomen. This was confirmed with direct visualization of the bowel, using the laparoscope. The patient's abdomen was then insufflated using approximately 4 liters of CO2 gas. Survey of the patient's abdomen demonstrated ovaries were normal in appearance as well as both tubes and uterus. A second and third rt and lt lateral ports which were 7-8 and 5 mm in size, was then placed after the skin incision was made under direct visualization The patient's tube on the patient's right side was identified and tented up using a grasper, the LigaSure apparatus was then used to come across the mesosalpinx from the fimbriated end to the insertion site at the uterus, the tube was then amputated and removed in its entirety. This was done on the contralateral side. The tubes were the removed from the patient's abdomen. Excellent hemostasis was noted. The lateral ports were then moved under direct visualization with excellent hemostasis. All instruments were removed from the patient's abdomen. The fascia was closed using the #0 Vicryl on GI needle. The skin was closed using 4-0 Vicryl subcuticularly. All instruments were removed from the patient's vagina as well. The patient was taken out of the dorsal lithotomy position and placed in the supine position and taken to recovery in stable condition. Sponge, lap and needle counts were correct x2. ADDENDUM TO PROCEDURE: Karena endometrial ablation with hysteroscopy with bilateral laparoscopic salpingectomy and also removal of Filshie clips. [facility] Evaluation + Plan note Note Date & Type Note Facility Evaluation + Plan note No data available for this section [facility] Evaluation note Note Date & Type Note Facility Evaluation note Diagnosis Well woman exam with routine gynecological exam Routine gynecological examination documented in this encounter [facility] Hospital Discharge instructions Note Date & Type Note Facility Hospital Discharge instructions No data available for this section [facility] Progress note Note Date & Type Note Facility Progress note No data available for this section [facility] Summary Purpose Family History No Family History Records FoundNo Family History Records FoundNo Family History Records FoundNo Family History Records Found Advance Directives No Advanced Directives Records FoundNo Advanced Directives Records FoundNo Advanced Directives Records FoundNo Advanced Directives Records Found Additional Source Comments INFORMATION SOURCE (unrecogn ized section and content) DATE CREATED AUTHOR 05/28/2022 [facility] DATE CREATED AUTHOR AUTHOR'S ORGANIZ ATION 12/31/2022 [facility] DATE CREATED AUTHOR AUTHOR'S ORGANIZ ATION 04/11/2024 [facility] DATE CREATED AUTHOR AUTHOR'S ORGANIZ ATION 03/16/2025 [facility] Patient Care team informatio n (unrecognized section and content) Mortgage Processing Clerk Relationship Specialty Start Date End Date Melodie Waters DO [address] [place] [address] PCP - General 03/08/23 Mortgage Processing Clerk Relationship Specialty Start Date End Date Melodie Waters DO [address] [place] [address] PCP - General 03/08/23 Reason for Visit (unrecogniz ed section and content) Reason Comments Well Women Visit FOR RECORDS PERTAINING TO PATIENTS WHO ARE OR HAVE BEEN ENROLLED IN A CHEMICAL DEPENDENCY/SUBSTANCEABUSE PROGRAM, SOME INFORMATION MAY BE OMITTED. This clinical summary was aggregated from multiple sources. Caution should be exercised in using it in the provision of clinical care. This summary normalizes information from multiple sources, and as a consequence, information in this document may materially change the coding, format and clinical context of patient data. In addition, data may be omitted in some cases. CLINICAL DECISIONS SHOULD BE BASED ON THE PRIMARY CLINICAL RECORDS. [facility] [employer] provides no warranty or guarantee of the accuracy or completeness of information in this document.
[2025-04-17 16:09] LABS: Age Gdln ACOG Testing Note (.); IGP, Aptima HPV, rfx 16/18,45 Note (.)
== END 2025-04-14 19:17 | disposition home or self-care (01) ==
LOC: LAB 19:16
PROVIDERS: Visit Provider Obstetrics & Gynecology
DX: Z01.419 Encounter for gynecological examination (general) (routine) without abnormal findings (principal)
CPT/HCPCS: 87624; 88175